=== PATIENT | female | born 1970 | race Caucasian/White ===

== ENCOUNTER 2019-02-04 11:01 | Day surgery (SDC) | payer OTHER, SELFPAY ==
[~2019-02-04] VITALS: Ht 167.6 cm; Wt 116.4 kg
[~2019-02-04 11:01] MED LIST: SUCCINYLCHOLINE 20 MG/ML, 10ML ONE
[2019-02-04] MEDS ORDERED: LACTATED RINGERS 1,000 ML IV SCH (11:54)
[2019-02-04] MEDS ORDERED: AMLO-304 PO (11:57)
[2019-02-04] MEDS ORDERED: METF500T17 PO (11:57)
[2019-02-04] MEDS ORDERED: OMEP-110 PO (11:57)
[2019-02-04] MEDS ORDERED: BUPR-86 PO (12:23)
[2019-02-04 12:24] VITALS: BP 143/86
[2019-02-04] MEDS ORDERED: KETO10TA PO (12:34)
[2019-02-04] MEDS ORDERED: PROPOFOL 10 MG/ML, 20ML ONE (12:50)
[2019-02-04] MEDS ORDERED: NEOSTIGMINE 1 MG/ML, 10ML ONE (12:50)
[2019-02-04] MEDS ORDERED: MIDAZOLAM 1 MG/ML, 2ML ONE (12:50)
[2019-02-04] MEDS ORDERED: CEFAZOLIN 1,000 MG ONE (12:50)
[2019-02-04] MEDS ORDERED: FENTANYL PF 250 MCG/5ML ONE (12:50)
[2019-02-04] MEDS ORDERED: ONDANSETRON 2MG/ML, 2ML ONE (12:50)
[2019-02-04] MEDS ORDERED: ROCURONIUM 10MG/ML,5ML ONE (12:50)
[2019-02-04] MEDS ORDERED: GLYCOPYRROLATE 0.2MG/1ML, 5ML ONE (12:50)
[2019-02-04] MEDS ORDERED: DEXAMETHASONE 4 MG/ML, 1ML ONE (12:50)
[2019-02-04] MEDS ORDERED: FENTANYL PF 100 MCG/2ML IV PRN ×2 (13:30→15:30)
[2019-02-04] MEDS ORDERED: PROMETHAZINE 25 MG SUPP PR PRN (13:30)
[2019-02-04] MEDS ORDERED: MEPERIDINE/PF 25MG/0.5ML IVPush PRN ×2 (13:30→15:30)
[2019-02-04] MEDS ORDERED: ONDANSETRON ODT 8 MG PO PRN ×2 (13:30→15:30)
[2019-02-04] MEDS ORDERED: hydrALAzine 20 MG/ML, 1ML IV PRN ×2 (13:30→15:30)
[2019-02-04] MEDS ORDERED: MORPHINE SULFATE 4 MG/ML, 1ML IVPush PRN ×2 (13:30→15:30)
[2019-02-04] MEDS ORDERED: PROMETHAZINE 25 MG/ML, 1ML IV PRN (13:30)
[2019-02-04] MEDS ORDERED: LABETALOL 5MG/ML, 20ML IV PRN (13:30)
[2019-02-04] MEDS ORDERED: HYDROmorphone 2 MG/ML, 1ML IVPush PRN (13:30)
[2019-02-04] MEDS ORDERED: ONDANSETRON 2MG/ML, 2ML IV PRN ×2 (13:30→15:30)
[2019-02-04] MEDS ORDERED: PROMETHAZINE 12.5 MG SUPP PR PRN (13:30)
[2019-02-04] MEDS ORDERED: PROMETHAZINE 25 MG/ML, 1ML IM PRN ×2 (13:30)
[2019-02-04] MEDS ORDERED: OXYcodone 5 MG/5 ML ORAL.SOL UDC PO PRN ×2 (13:30→15:30)
[2019-02-04] MEDS ORDERED: ACETAMINOPHEN 325 MG TABLET PO PRN (15:30)
[2019-02-04] MEDS ORDERED: KETOROLAC 30 MG/1 ML IV PRN (15:30)
[2019-02-04] MEDS ORDERED: METOPROLOL 1 MG/ML, 5ML IV PRN (15:30)
[2019-02-04] MEDS ORDERED: EPHEDRINE 50 MG/ML, 1ML IM PRN (15:30)
[2019-02-04] MEDS ORDERED: EPHEDRINE 50 MG/ML, 1ML IVPush PRN (15:30)
[2019-02-04] MEDS ORDERED: DIPHENHYDRAMINE 50 MG/ML, 1ML IVPush PRN (15:30)
[2019-02-04] MEDS ORDERED: DIAZEPAM 5 MG/ML, 10ML VIAL IVPush PRN (15:30)
[2019-02-04] MEDS ORDERED: MIDAZOLAM 1 MG/ML, 2ML IV PRN (15:30)
== END 2019-02-04 17:50 | disposition home or self-care (01) ==
LOC: OUT 11:01
PROVIDERS: ATTEND Urology
DX: N20.0 Calculus of kidney (principal); E11.9 Type 2 diabetes mellitus without complications; I10 Essential (primary) hypertension; K21.9 Gastro-esophageal reflux disease without esophagitis; Z79.899 Other long term (current) drug therapy; Z79.84 Long term (current) use of oral hypoglycemic drugs
CPT/HCPCS: 52356; 74018; 76000; 81025; 82962; C1758; C1769; C2617; J0330; J0690; J1100; J2250; J2405; J2704; J2710; J3010; J7120

== ENCOUNTER → 2020-06-12 | Outpatient (CLI) | payer OTHER ==
[~2020-06-12] MED LIST changes: +BUPR-86 PO; +KETO10TA PO; +METF500T17 PO; +OMEP-110 PO; -SUCCINYLCHOLINE 20 MG/ML, 10ML ONE; +[UNRECOGNIZED DRUG - CODE] PO
== END | disposition home or self-care (01) ==
LOC: CFH 07:00
PROVIDERS: ATTEND Obstetrics & Gynecology
DX: Z12.31 Encounter for screening mammogram for malignant neoplasm of breast (principal)
CPT/HCPCS: 77063; 77067